=== PATIENT | male | born 1965 | race Caucasian/White ===

== ENCOUNTER 2017-12-15 16:22 | Emergency (ER) | payer MEDICAID ==
[~2017-12-15] VITALS: Ht 167.6 cm; Wt 89.8 kg
--- NOTE | 2017-12-15 21:48 | EKG ---
[facility] [address] [facility] [place] [address] Signed Normal sinus rhythm Right bundle branch block Left anterior fascicular block Bifascicular block Septal infarct , age undetermined Abnormal ECG No previous ECGs available Confirmed by LYNDON GALAN MD ([id number]) on 12/15/2017 9:48:04 PM Electronically Signed By: LYNDON GALAN MD 12/15/17 2148 PATIENT NAME: LUJANCT Electrocardiogram DATE OF : 69 PHYSICIAN: LYNDON GALAN MD REPORT #: [id number] REPORT IS CONFIDENTIAL AND NOT TO BE RELEASED WITHOUT AUTHORIZATION
== END 2017-12-15 18:36 | disposition home or self-care (01) ==
LOC: ED 16:22
DX: R07.9 Chest pain, unspecified (principal); F10.239 Alcohol dependence with withdrawal, unspecified; Z88.0 Allergy status to penicillin
CPT/HCPCS: 80053; 83690; 84484; 85025; 93005; 93010; 99284; J7040

== ENCOUNTER 2017-12-21 15:15 | Emergency (ER) | payer MEDICAID ==
[~2017-12-21] VITALS: Ht 167.6 cm; Wt 89.8 kg
--- OUTSIDE RECORDS SUMMARY | ~2017-12-21 | XMS | Encounter Summary ---
Demographics + + + | Address | [address] | | | [place] [address] | + + + | Home Phone | | + + + | Preferred Language | Unknown | + + + | Marital Status | Single | + + + | Rastafarian Affiliation | NRP | + + + | Race | White | + + + | Ethnic Group | Not or | + + + Author + + + | Author | [facility] | + + + | Organization | [facility] | + + + | Address | Unknown | + + + | Phone | Unavailable | + + + Support + + + + + | Name | Relationship | Address | Phone | + + + + + | TRACIE SHAFFER | ECON | [place] | | | | | [address] | | + + + + + Care Team Providers + +------+ + | Care Director Of Nursing Name | Role | Phone | + +------+ + | Alee Doe PA-C | PCP | | + +------+ + Reason for Visit + + + | Reason | Comments | + + + | 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 | | Call | | + + + Encounter Details +--------+ + + + + | Date | Type | Department | Care Team | Description | +--------+ + + + + | 12/12/ | Patient | [facility] | Alee Doe, | enforcement manager | | 2018 | Outreach | Medicine [address] | PA-C [address] | Call (Rehab) | | | | [address] [place], | [place], [place] | | | | | [place] [address] | [address] | | | | | [phone] | [phone] | | | | | | | | +--------+ + + + + Social History + + + [...] | | + +---+---+---+ + + | Comments: 6 cigarettes daily | + [...] on file | | + + + as of this encounter Plan of Treatment Not on fileas of this encounter Visit Diagnoses Not on filein this encounter
--- OUTSIDE RECORDS SUMMARY | ~2017-12-21 | XMS | Encounter Summary ---
Demographics + + + | Address | [address] | | | [place] [address] | + + + | Home Phone | | + + + | Preferred Language | Unknown | + + + | Marital Status | Single | + + + | Religion Affiliation | NRP | + + + | Race | White | + + + | Ethnic Group | Not or | + + + Author + + + | Author | [facility] | + + + | Organization | [facility] | + + + | Address | Unknown | + + + | Phone | Unavailable | + + + Support + + + + + | Name | Relationship | Address | Phone | + + + + + | TRACIE SHAFFER | ECON | [place] | | | | | [address] | | + + + + + Care Team Providers + +------+ + | Care Hydraulic Operator Name | Role | Phone | + +------+ + | Alee Doe PA-C | PCP | | + +------+ + Encounter Details +--------+ + + + + | Date | Type | Department | Care Team | Description | +--------+ + + + + | 12/01/ | Document-Sc | [facility] | Alee Doe, | | | 2018 | anned | Medicine [address] | ELIUD [address] | | | | | [address] [place], | [place] | | | | | [place] [address] | [address] | | | | | [phone] | | | | | | | [...]
--- OUTSIDE RECORDS SUMMARY | ~2017-12-21 | XMS | Encounter Summary ---
Demographics + + + | Address | [address] | | | [place] [address] | + + + | Home Phone | | + + + | Preferred Language | Unknown | + + + | Marital Status | Single | + + + | Presybeterian Affiliation | NRP | + + + | Race | White | + + + | Ethnic Group | Not or | + + + Author + + + | Author | [facility] | + + + | Organization | [facility] | + + + | Address | Unknown | + + + | Phone | Unavailable | + + + Support + + + + + | Name | Relationship | Address | Phone | + + + + + | TRACIE SHAFFER | ECON | [place] | | | | | [address] | | + + + + + Care Team Providers + +------+ + | Care Laboratory Inspector Name | Role | Phone | + +------+ + | Alee Doe PA-C | PCP | | + +------+ + Reason for Visit + + + | Reason | Comments | + + + | 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
--- OUTSIDE RECORDS SUMMARY | ~2017-12-21 | XMS | Encounter Summary ---
Demographics + + + | Address | [address] | | | [place] [address] | + + + | Home Phone | | + + + | Preferred Language | Unknown | + + + | Marital Status | Single | + + + | Denominational Affiliation | NRP | + + + | Race | White | + + + | Ethnic Group | Not or | + + + Author + + + | Author | [facility] | + + + | Organization | [facility] | + + + | Address | Unknown | + + + | Phone | Unavailable | + + + Support + + + + + | Name | Relationship | Address | Phone | + + + + + | TRACIE SHAFFER | ECON | [place] | | | | | [address] | | + + + + + Care Team Providers + +------+ + | Care Charger Name | Role | Phone | + +------+ + | Alee Doe PA-C | PCP | | + +------+ + Reason for Visit + + + | Reason | Comments | + + + | Refill Request | Metformin, Albuterol Inhaler, Atorvastatin, Glimepiride, | | | Metoprolol, Ranitidine, Pantoprazole, Lisinopril, Trazodone | + + + Encounter Details +--------+ + + + + | Date | Type | Department | Care Team | Description | +--------+ + + + + | 12/15/ | Telephone | [facility] | Alee Doe, | Refill Request | | 2017 | | Medicine [address] | PA-C [address] | (Metformin, | | | | [address] [place], | [place], [place] | Albuterol Inhaler, | | | | [place] [address] | [address] | Atorvastatin, | | | | [phone] | [phone] | Glimepiride, | | | | | | Metoprolol, | | | | | | Ranitidine, | | | | | | Pantoprazole, | | | | | | Lisinopril, | | | | | | Trazodone) | +--------+ + + + + Social [...] on fileas of this encounter Visit Diagnoses + + | Diagnosis | + + | Uncontrolled type 2 diabetes mellitus without complication, without long-term current | | use of insulin (HCC) | + +
--- OUTSIDE RECORDS SUMMARY | ~2017-12-21 | XMS | Encounter Summary ---
Demographics + + + | Address | [address] | | | [place] [address] | + + + | Home Phone | | + + + | Preferred Language | Unknown | + + + | Marital Status | Single | + + + | Shinto Affiliation | NRP | + + + [...] [place] | | | | | [address] | | + + + + + Care Team Providers + +------+ + | Care Stonecutter Apprentice Hand Name | Role | Phone | + [...] | | | | | [address] [place], | [place] | | | | | [place] [address] | [address] | | | | | [phone] | [phone] | | | | | | | [...]
--- OUTSIDE RECORDS SUMMARY | ~2017-12-21 | XMS | Encounter Summary ---
Demographics + + + | Address | [address] | | | [place] [address] | + + + | Home Phone | | + + + | Preferred Language | Unknown | + + + | Marital Status | Single | + + + | Moravian Affiliation | NRP | + + + | Race | White | + + + | Ethnic Group | Not or | + + + Author + + + | Author | [facility] | + + + | Organization | [facility] | + + + | Address | Unknown | + + + | Phone | Unavailable | + + + Support + + + + + | Name | Relationship | Address | Phone | + + + + + | TRACIE SHAFFER | ECON | [place] | | | | | [address] | | + + + + + Care Team Providers + +------+ + | Care Brake Operator Sheet Metal Name | Role | Phone | + +------+ + | Alee Doe PA-C | PCP | | + +------+ + Reason for Visit + + + | Reason | Comments | + + + | Appointment | | + + + Encounter Details +--------+ + + + + | Date | Type | Department | Care Team | Description | +--------+ + + + + | 12/21/ | Telephone | [facility] | Alee Doe, | Appointment | | 2017 | | Medicine [address] | ELIUD [address] | | | | | [address] [place], | [place], [place] | | | | | [place] [address] | [address] | | | | | [phone] | [phone] | | | | | | | [...]
--- OUTSIDE RECORDS SUMMARY | ~2017-12-21 | XMS | Encounter Summary ---
Demographics + + + | Address | [address] | | | [place] [address] | + + + | Home Phone | | + + + | Preferred Language | Unknown | + + + | Marital Status | Single | + + + | Anabaptist Affiliation | NRP | + + + | Race | White | + + + | Ethnic Group | Not or | + + + Author + + + | Author | [facility] | + + + | Organization | [facility] | + + + | Address | Unknown | + + + | Phone | Unavailable | + + + Support + + + + + | Name | Relationship | Address | Phone | + + + + + | TRACIE SHAFFER | ECON | [place] | | | | | [address] | | + + + + + Care Team Providers + +------+ + | Care Call Center Support Representative Name | Role | Phone | + +------+ + | Alee Doe PA-C | PCP | | + +------+ + Reason for Referral Consultation (Routine) + +--------+ + + + + | Status | Reason | Specialty | Diagnoses / | Referred By | Referred To | | | | | Procedures | Contact | Contact | + +--------+ + + + + | Authorized | | Ophthalmology | Diagnoses | [place], | [facility] | | | | | Essential | Alee Garcia | [facility] | | | | | hypertension | ELIUD [address] | [address] | | | | | [address]rolled | [address] | [place] | | | | | type 2 | [place], | [address] | | | | | diabetes | [place] | [place], | | | | | mellitus | [address] | [place] [address] | | | | | without | Phone: | Phone: | | | | | complication | [phone] | [phone] | | | | | , without | Fax: | Fax: | | | | | long-term | [phone] | [phone] | | | | | current use | | | | | | | of insulin | | | | | | | (HCC) | | | | | | | Procedures | | | | | | | CONSULT TO | | | | | | | OPHTHALMOLOG | | | | | | | Y | | | + +--------+ + + + + Reason for Visit + + + | Reason | Comments | + + + | Referral Needed | [facility] | + + + Encounter Details +--------+ + + + + | Date | Type | Department | Care Team | Description | +--------+ + + + + | 11/23/ | Telephone | [facility] | Alee Doe, | Referral Needed | | 2018 | | Medicine [address] | PA-C [address] | ([facility]) | | | | [address] [place], | [place], [place] | | | | | [place] [address] | [address] | | | | | [phone] | | | | | | | [...] + | Diagnosis | + + | Controlled type 2 diabetes mellitus without complication, without long-term current use | | of insulin (HCC) - Primary | + + | Essential hypertension | + +
--- OUTSIDE RECORDS SUMMARY | ~2017-12-21 | XMS | Encounter Summary ---
Demographics + + + | Address | [address] | | | [place] [address] | + + + | Home Phone | | + + + | Preferred Language | Unknown | + + + | Marital Status | Single | + + + | Adventism Affiliation | NRP | + + + | Race | White | + + + | Ethnic Group | Not or | + + + Author + + + | Author | [facility] | + + + | Organization | [facility] | + + + | Address | Unknown | + + + | Phone | Unavailable | + + + Support + + + + + | Name | Relationship | Address | Phone | + + + + + | TRACIE SHAFFER | ECON | [place] | | | | | [address] | | + + + + + Care Team Providers + +------+ + | Care Miller Kiln Dried Salt Name | Role | Phone | + +------+ + | Alee Doe PA-C | PCP | | + +------+ + Reason for Visit +--------+ + | Reason | Comments | +--------+ + | Other | | +--------+ + Encounter Details +--------+ + + + + | Date | Type | Department | Care Team | Description | +--------+ + + + + | 09/29/ | Telephone | [facility] | Alee Doe, | Other | | 2017 | | Medicine [address] | ELIUD [address] | | | | | [address] [place], | [place] | | | | | [place] [address] | [address] | | | | | [phone] | | | | | | | [...]
--- OUTSIDE RECORDS SUMMARY | ~2017-12-21 | XMS | Encounter Summary ---
Demographics + + + | Address | [address] | | | [place] [address] | + + + | Home Phone | | + + + | Preferred Language | Unknown | + + + | Marital Status | Single | + + + | Church Affiliation | NRP | + + + | Race | White | + + + | Ethnic Group | Not or | + + + Author + + + | Author | [facility] | + + + | Organization | [facility] | + + + | Address | Unknown | + + + | Phone | Unavailable | + + + Support + + + + + | Name | Relationship | Address | Phone | + + + + + | TRACIE SHAFFER | ECON | [place] | | | | | [address] | | + + + + + Care Team Providers + +------+ + | Care Gum Puller Name | Role | Phone | + +------+ + | Alee Doe PA-C | PCP | | + +------+ + Reason for Visit + + + | Reason | Comments | + + + | Cough | X6 wks, c/o congestion, sob- worse at night. pt denies fevers. pt | | | last alcoholic drink was monday. | + + + | Ankle pain | left ankle. | + + + Encounter Details +--------+---------+ + + + | Date | Type | Department | Care Team | Description | +--------+---------+ + + + | 10/13/ | Office | [facility] | Alee Doe, | Acute suppurative | | 2017 | Visit | Medicine [address] | PA-C [address] | otitis media of left | | | | [address] [place], | [place], [place] | ear without | | | | [place] [address] | [address] | spontaneous rupture | | | | [phone] | [phone] | of tympanic | | | | [...] | | | | | hypertension | +--------+---------+ + + + Social History + + [...] + + + as of this encounter Last Filed Vital Signs + + + + | Vital Sign | Reading | Time Taken | + + + + | Blood Pressure | 112/64 | 10/13/2017 10:34 AM PST | + + + + | Pulse | 111 | 10/13/2017 10:34 AM PST | + + + + | Temperature | 36.8 C (98.2 F) | 10/13/2017 10:34 AM PST | + + + + | Respiratory Rate | - | - | + + + + | Oxygen Saturation | 96% | 10/13/2017 10:34 AM PST | + + + + | Inhaled Oxygen | - | - | | Concentration | | | + + + + | Weight | 83.5 kg (184 lb) | 10/13/2017 10:34 AM PST | + + + + | Height | - | - | + + + + | Body Mass Index | 28.82 | 10/13/2017 10:34 AM PST | + + + + in this encounter Instructions Patient Instructions - Lisa Chamberlain MA - 10/13/2017 10:45 AM PST1. Acute suppurative wesley tis media of left ear without spontaneous rupture of tympanic membrane, recurrence not speci fied/Acute non-recurrent maxillary sinusitis I have prescribed azithromycin to treat your ear infection and a sinus infection. Please en sure you get plenty of rest, stay hydrated, use nasal saline/humidifier/steamy showers for c ongestion, tylenol/ibuprofen for headache/fever. Please follow up if your symptoms fail to i mprove over the next week, your symptoms worsen or new concerns arise. 2. Generalized abdominal pain I suspect your pancreas is inflamed. I recommend that you stop drinking alcohol and increas e your fluid intake. Be mindful of your food intake. We did lab work today and will call you with those results. I have prescribed pantoprazole to help with your heartburn. 3. Acute left ankle pain I have ordered an xray of your ankle. You can go get this at the hospital at your convenien ce and we will call you with those results. Please wear supportive shoes, avoid uneven groun d and take antiinflammatories consistently. 4. Controlled type 2 diabetes mellitus without complication, without long-term current use of insulin (HCC) Labs drawn today before we resume metformin or glimepiride. Please continue to check your b lood sugars occasionally and if you feel flushed, dizzy, weak, or nauseous. - HEMOGLOBIN A1C, BLOOD; Future - ALBUMIN URINE, RANDOM; Future 5. Chronic obstructive pulmonary disease, unspecified COPD type (HCC) Restart combivent daily and albuterol as needed. Flu shot given today. Please work on minimizing smoking - goal is to quit if at all possible. 6. Essential hypertension No medications restarted today as your blood pressure is good. However, we will need to res tart lisinopril at some point to protect kidnyes and metoprolol for heart protection/lower y our heart rate. Please follow up with me in 2 weeks to recheck blood pressure and go over la bs/develop a plan. 7. Alcohol-induced insomnia (HCC) Continue trazodone 200 mg for now. We'll discuss this further at your next appointment in 2 weeks if not improved by then (being sober for 3 weeks by then).in this encounter Progress Notes Alee Doe PA-C - 10/13/2017 10:45 AM PSTFormatting of this note may be different fr om the original. SUBJECTIVE CC: Chief Complaint Patient presents with Cough X6 wks, c/o congestion, sob- worse at night. pt denies fevers. pt last alcoholic drink wa s monday. Ankle pain left ankle. HPI: Yung Headley is a 52 y.o. male who complains of sinus and nasal congestion, s ore throat, headaches, sinus pain, post nasal drip, chest congestion, ear pain, wheezing and productive cough for 6 weeks. It is making it hard for him to sleep at night. He denies a h istory of fevers, nausea, vomiting and rash and has a history of COPD. Patient does smoke ci garettes but decided to quit on Monday. He has abdominal pain and has not been eating very w ell due to this. It is achy and located more on the sides and in his stomach. He does feel b loated. He is drinking lots of fluids. He was drinking a 6 pack per day on his days off. He has stopped since Monday because of the abdominal pain (reminds him of the numerous times he has had pancreatitis secondary to alcohol use). His abdomen feels tight but he denies any s welling in his legs. His stress level has been higher lately. 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 His mother passed stephen y which was tough at first but he is coping better now. He was evicted from the house very s hortly after her passing. He is now in a nice travel trailer. He lost his insurance about 6-7 months ago and has not been taking his medications. He did check his blood sugar periodically and the highest one was 130. He restarted trazodone for h is sleep 5 days ago but doesn't find it very helpful. He is able to fall asleep but he wakes up about 1.5 hours later for no clear reason. He does admit that in the past when he was so nathan for longer periods of time that his sleep did well on the trazodone. He twisted his left ankle 5-6 weeks ago. It was not painful at the time but has been since. He did not notice any initial ecchymosis or edema after the injury. The pain is on the medi al malleolus. The pain is present when he is active or at rest but is worsened with activity . He has a history of ankle surgery on this ankle (lateral side) and there is a plate and sc rews present. He has not taken anything to help with the pain. Pain is stable without any im provement or worsening. Review of Systems Constitutional: Positive for malaise/fatigue. Negative for chills, diaphoresis, fever and w eight loss. HENT: Positive for congestion, ear pain, sinus pain and sore throat. Negative for ear disch arge and nosebleeds. Eyes: Negative for pain and discharge. Respiratory: Positive for cough, sputum production, shortness of breath and wheezing. Cardiovascular: Negative for chest pain, palpitations and leg swelling. Gastrointestinal: Positive for abdominal pain, heartburn and nausea. Negative for blood in stool, constipation, diarrhea, melena and vomiting. Genitourinary: Positive for hematuria. Negative for dysuria, flank pain, frequency and urge ncy. Musculoskeletal: Positive for back pain. Neurological: Positive for headaches. Negative for dizziness, tremors, speech change, focal weakness, seizures and weakness. Psychiatric/Behavioral: Negative for depression. The patient has insomnia. The patient is n ot nervous/anxious. OBJECTIVE PHYSICAL EXAM: BP 112/64 | Pulse 111 | Temp (Src) 36.8 C (98.2 F) (Oral) | Wt 83.5 kg (184 lb) | SpO2 96% | BMI 28.82 kg/(m^2) General appearance: overweight, without distress. HEENT: Eyes: Sclera nonicteric and without erythema. Conjunctiva pink, moist without discharge. Ears: Canals clear, right TM pearly adam with light reflex and bony structures evident. No perforations, air-fluid line or erythema. Left TM erythematous, bulging with yellow purulen t fluid evident behind TM. Nose: Nares patent bilaterally. Clear discharge. Turbinates pink, moist, with erythema and edema. No polyps. Mouth: Lips pink without lesions. Uvula midline. Tonsils 1+. Oropharynx without edema, eryt damir or exudates. Thick yellow postnasal drip evident. Buccal mucosa and gingiva pink, moist without hemorrhage or lesions. Neck: Trachea midline. No tonsilar, submandiblar, submental, anterior and posterior cervica l chains, or supraclavicular lymphadenopathy or tenderness. Pulm: Regular, nonlabored breathing without accessory muscle use. Cough elicited by deep in spiration. CTA A/P/L bilaterally with prolonged expiratory phase, occasional end expiratory wheezes. No crackles, rubs or rhonchi. Nails smooth without clubbing, spooning or cyanosis. Capillary refill < 2 seconds. Cardiac: RRR without murmur, rubs or gallops.Radial pulses 2+ and equal bilaterally. Abdomen: Contour uniform. Normoactive bowel sounds x 4 quadrants, no rubs or bruits. Soft, diffusely tender in upper abdomen, LUQ>RUQ. Nondistended without masses or rigidity on palpa tion. Hepatomegaly. No splenomegaly. Musculoskeletal: Ankles: No lower extremity, ankle or foot edema. Left lateral ankle mildly deformed/enlarged s/p surgery. Full ankle ROM without pain. Exquisitely tender to palpation of left medial malleolus, mild tenderness across AFL, otherwise nontender. Ankle stable wit hout ligamentous laxity. Skin: Skin warm, smooth and firm with resilient turgor. No rash. Psych: Dressed appropriately, good eye contact, linear thought progression. ASSESSMENT/PLAN 1. Acute suppurative otitis media of left ear without spontaneous rupture of tympanic membr ane, recurrence not specified/Acute non-recurrent maxillary sinusitis I have prescribed azithromycin to treat your ear infection and a sinus infection. Please en sure you get plenty of rest, stay hydrated, use nasal saline/humidifier/steamy showers for c ongestion, tylenol/ibuprofen for headache/fever. Please follow up if your symptoms fail to i mprove over the next week, your symptoms worsen or new concerns arise. 2. Generalized abdominal pain I suspect your pancreas is inflamed. I recommend that you stop drinking alcohol and increas e your fluid intake. Be mindful of your food intake. We did lab work today and will call you with those results. I have prescribed pantoprazole to help with your heartburn. 3. Acute left ankle pain I have ordered an xray of your ankle. You can go get this at the hospital at your convenien and we will call you with those results. Please wear supportive shoes, avoid uneven groun d and take antiinflammatories consistently. 4. Controlled type 2 diabetes mellitus without complication, without long-term current use of insulin (HCC) Labs drawn today before we resume metformin or glimepiride. Please continue to check your b lood sugars occasionally and if you feel flushed, dizzy, weak, or nauseous. - HEMOGLOBIN A1C, BLOOD; Future - ALBUMIN URINE, RANDOM; Future 5. Chronic obstructive pulmonary disease, unspecified COPD type (HCC) Restart combivent daily and albuterol as needed. Flu shot given today. Please work on minimizing smoking - goal is to quit if at all possible. 6. Essential hypertension No medications restarted today as your blood pressure is good. However, we will need to res tart lisinopril at some point to protect kidnyes and metoprolol for heart protection/lower y our heart rate. Please follow up with me in 2 weeks to recheck blood pressure and go over la bs/develop a plan. 7. Alcohol-induced insomnia (HCC) Continue trazodone 200 mg for now. We'll discuss this further at your next appointment in 2 weeks if not improved by then (being sober for 3 weeks by then). I, Lisa Chamberlain, [facility], am functioning as a scribe for Alee Doe PA-C. I have reviewed and verified the above scribed note of my visit with this patient. Alee Doe PA-C [facility] [address] [place] [phone] in this encounter Plan of Treatment + +--------+ + + | Name | Priori | Associated Diagnoses | Order Schedule | | | ty | | | + +--------+ + + | X-RAY ANKLE 3 VIEWS LEFT | Routin | Acute left ankle | Expected: | | | e | pain | 10/13/2017, Expires: | | | | | 11/13/2018 | + +--------+ + + as of this encounter Results CULTURE, URINE (10/13/2017 11:48 AM) + + + + | Component | Value | Ref Range | + + + + | CULTURE RESULT URINE | No Growth | | + + + + + + + | Specimen | Performing Laboratory | + + + | Urine | [address] [facility] | | | [place] [id number] | + + + URINE, MICROSCOPIC EXAM (10/13/2017 11:48 [...] | + + + | Urine | [address] [facility] | | | [place] [id number] | + + + ALBUMIN URINE, RANDOM (10/13/2017 11:48 AM) + [...] | + + + | Urine | [address] [facility] | | | [place] [id number] | + + + + + | [...] within a diagnostic category. | + + LIPASE, PLASMA (10/13/2017 11:48 AM) + +-------+ + | Component | Value | Ref Range | + +-------+ + | LIPASE (LAB) | 26 | 5 - 57 U/L | + +-------+ + + + + | Specimen | Performing Laboratory | + + + | Blood | [address] [facility] | | | [place] [address] | + + + COMPLETE METABOLIC SET [...] | >60 | >60 mL/min | | UGANDAN | | | + +---------+ + | EGFR NON | >60 | >60 mL/min | | -UGANDAN | | | + +---------+ + | [...] | + + + | Blood | [address] [facility] | | | [place] [address] | + + + + + | [...] Rapidly changing kidney function | + + HEMOGLOBIN A1C, BLOOD (10/13/2017 11:48 [...] | + + + | Blood | [address] [facility] | | | [place] [address] | + + + + + | Narrative | + + | Glycohemoglobin Recommended Diabetic Ranges per DCCT & ADA: Normal | | Range: <6% Good | | Control: <7% Additional action | | suggested: >8% Non-Diabetic | | Ranges: 4-6% Permit Coordinator's Glycohemoglobin Diabetic | | Ranges: Normal Range: 4.0-6.0% | | Good Control: 6.0-8.0% | | Poor Control: >8.0% | + + in this encounter Visit Diagnoses + + | Diagnosis | + + | Acute suppurative otitis media of left ear without spontaneous rupture of tympanic | | membrane, recurrence not specified - Primary | + + | Acute non-recurrent maxillary sinusitis | + + | Pain of upper abdomen | + + | Abdominal pain, other specified site | + + | Acute left ankle pain | + + | Flu vaccine need | + + | Need for prophylactic vaccination and inoculation against influenza | + + | Controlled type 2 diabetes mellitus without complication, without long-term current use | | of insulin (HCC) | + + | Chronic obstructive pulmonary disease, unspecified COPD type (HCC) | + + | Essential hypertension | + + | Alcohol-induced insomnia (HCC) | + + | Alcohol induced sleep disorders | + + | Gross hematuria | + +
--- OUTSIDE RECORDS SUMMARY | ~2017-12-21 | XMS | Encounter Summary ---
Demographics + + + | Address | [address] | | | [place] [address] | + + + | Home Phone | | + + + | Preferred Language | Unknown | + + + | Marital Status | Single | + + + | Rastafari Affiliation | NRP | + + + | Race | White | + + + | Ethnic Group | Not or | + + + Author + + + | Author | [facility] | + + + | Organization | [facility] | + + + | Address | Unknown | + + + | Phone | Unavailable | + + + Support + + + + + | Name | Relationship | Address | Phone | + + + + + | TRACIE SHAFFER | ECON | [place] | | | | | [address] | | + + + + + Care Team Providers + +------+ + | Care Manager Wireless Name | Role | Phone | + +------+ + | Alee Doe PA-C | PCP | | + +------+ + Reason for Visit + + + | Reason | Comments | + + + | Needs Paperwork | | + + + Encounter Details +--------+ + + + + | Date | Type | Department | Care Team | Description | +--------+ + + + + | 12/15/ | Telephone | [facility] | Alee Doe, | Needs Paperwork | | 2018 | | Medicine [address] | [place] [address] | | | | | [address] [place], | [place], [place] | | | | | [place] [address] | [phone] | | | | | [phone] | [phone] | | | | | | | [...]
--- OUTSIDE RECORDS SUMMARY | ~2017-12-21 | XMS | Encounter Summary ---
Demographics + + + | Address | [address] | | | [place] [address] | + + + | Home Phone | | + + + | Preferred Language | Unknown | + + + | Marital Status | Single | + + + | Anglican Affiliation | NRP | + + + | Race | White | + + + | Ethnic Group | Not or | + + + Author + + + | Author | [facility] | + + + | Organization | [facility] | + + + | Address | Unknown | + + + | Phone | Unavailable | + + + Support + + + + + | Name | Relationship | Address | Phone | + + + + + | TRACIE SHAFFER | ECON | [place] | | | | | [address] | | + + + + + Care Team Providers + +------+ + | Care Human Relations Teacher Name | Role | Phone | + +------+ + | Alee Doe PA-C | PCP | | + +------+ + Encounter Details +--------+------+ + + + | Date | Type | Department | Care Team | Description | +--------+------+ + + + | 10/13/ | Lab | Laboratory at [facility] | | Controlled type 2 | | 2017 | | Family Medicine | | diabetes mellitus | | | | [address] | | without | | | | [place] | | complication, | | | | [address] | | without long-term | | | | [phone] | | current use of | | | | | | insulin (HCC); Pain | | | | | | of upper abdomen; | | | | | | Gross hematuria | +--------+------+ + + + Social History + + [...] Treatment Not on fileas of this encounter Results URINE, MICROSCOPIC EXAM (10/13/2017 11:48 AM) + [...] | + + + | Urine | [address] [facility] | | | [place] [address] | + + + ALBUMIN URINE, RANDOM [...] | + + + | Urine | [address] [facility] | | | [place] [address] | + + + + + | [...] | + + + | Blood | [address] [facility] | | | [place] [address] | + + + COMPLETE METABOLIC SET [...] | >60 | >60 mL/min | | OMANI | | | + +---------+ + | EGFR NON | >60 | >60 mL/min | | -OMANI | | | + +---------+ + | [...] | + + + | Blood | [address] [facility] | | | [place] [address] | + + + + + | [...] | + + + | Blood | [address] [facility] | | | [place] [address] | + + + + + | Narrative | + + | Glycohemoglobin Recommended Diabetic Ranges per DCCT & ADA: Normal | | Range: <6% Good | | Control: <7% Additional action | | suggested: >8% Non-Diabetic | | Ranges: 4-6% National Facilities Manager's Glycohemoglobin Diabetic | | Ranges: Normal Range: 4.0-6.0% | | Good Control: 6.0-8.0% | | Poor Control: >8.0% | + + in this encounter Visit Diagnoses + + | Diagnosis | + + | Controlled type 2 diabetes mellitus without complication, without long-term current use | | of insulin (HCC) | + + | Pain of upper abdomen | + + | Abdominal pain, other specified site | + + | Gross hematuria | + +
--- OUTSIDE RECORDS SUMMARY | ~2017-12-21 | XMS | Encounter Summary ---
Demographics + + + | Address | [address] | | | [place] [address] | + + + | Home Phone | | + + + | Preferred Language | Unknown | + + + | Marital Status | Single | + + + | Catholic Affiliation | NRP | + + + | Race | White | + + + | Ethnic Group | Not or | + + + Author + + + | Author | [facility] | + + + | Organization | [facility] | + + + | Address | Unknown | + + + | Phone | Unavailable | + + + Support + + + + + | Name | Relationship | Address | Phone | + + + + + | TRACIE SHAFFER | ECON | [place] | | | | | [address] | | + + + + + Care Team Providers + +------+ + | Care Data Designer Name | Role | Phone | + [...] (Metformin, | | | | [address] [place], | [place], [place] | Albuterol Inhaler, | | | | [place] [address] | [phone] | Atorvastatin, | | | | [phone] | [phone] | Glimepiride, | | | | | [...]
--- OUTSIDE RECORDS SUMMARY | ~2017-12-21 | XMS | Encounter Summary ---
Demographics + + + | Address | [address] | | | [place] [address] | + + + | Home Phone | | + + + | Preferred Language | Unknown | + + + | Marital Status | Single | + + + | Synagogue Affiliation | NRP | + + + | Race | White | + + + | Ethnic Group | Not or | + + + Author + + + | Author | [facility] | + + + | Organization | [facility] | + + + | Address | Unknown | + + + | Phone | Unavailable | + + + Support + + + + + | Name | Relationship | Address | Phone | + + + + + | TRACIE SHAFFER | ECON | [place] | | | | | [address] | | + + + + + Care Team Providers + +------+ + | Care Foam Rubber Molder Name | Role | Phone | + [...] + + + | Authorized | | Psychiatry | Diagnoses | Brook | Lb | | | | | Alcohol | Alee Garcia | Joradn | | | | | abuse | [address] | [facility] | | | | | Depression, | St | Living [address] | | | | | unspecified | [place], | St [address] | | | | | depression | [place] | [address] | | | | | type | [address] | [place] | | | | | Procedures | Phone: | [phone] Phone: | | | | | CONSULT TO | [phone] | [phone] | | | | | BEHAVIORAL | Fax: | Fax: | | | | | HEALTH/PSYCH | [phone] | [phone] | | | | | IATRY - | | | | | | | ADULT | | | + +--------+ + + + + Reason for Visit +--------+ + | Reason | Comments | +--------+ + | Cyst | cyst in groin area x 2/3 wks | +--------+ + Encounter Details +--------+---------+ + + + | Date | Type | Department | Care Team | Description | +--------+---------+ + + + | 11/22/ | Office | [facility] | Doe, Alee A, | Alcohol abuse | | 2018 | Visit | Medicine [address] | PA-C [address] | (Primary Dx); | | | | [address] [place], | [place], [place] | Depression, | | | | [place] [address] | [address] | unspecified | | | | [phone] | [phone] | depression type; | | | | | | Acute folliculitis | +--------+---------+ + + + Social History [...] + + + + | Temperature | - | - | + + + + | Respiratory [...] PM PST | + + + + in this encounter Instructions Patient Instructions - Lisa Chamberlain MA - 11/22/2017 2:45 PM PST1. Alcohol abuse/depress ion I recommend doing outpatient rehab and counseling through [facility]. Please call [facility] at to find out their intake hours. They are more available for more freque nt counseling sessions. You need to be upfront with them about the support you need and give the counselor time to get to know you and learn to support you the way you find helpful. Co unseling and dealing with your issues will take time. 2. Acute folliculitis Please start antibiotics (bactrim) and take full course of antibiotics. Keep area clean and dry (can use baby powder). Keep a close eye on the area - if it doesn't improve, let me kno w as given your history of necrotizing fasciitis, we may need to do further imaging. Please follow up with me in the next few weeks/month on your diabetes and breathing. I did refill your inhaler. in this encounter Progress Notes Alee Doe PA-C - 11/22/2017 2:45 PM PSTFormatting of this note may be different fr om the original. SUBJECTIVE CC: Chief Complaint Patient presents with Cyst cyst in groin area x 2/3 wks HPI: Yung Headley is a 52 y.o. male here with a cyst in his groin for 3-4 weeks. Farhan millan has been draining it on his own (blood primarily) but it is not resolving. He doesn't thin k it has grown in size. He denies any fevers. He is worried it is the same thing he had in t he past (necrotizing fasciitis, 2015). He denies any pain in his groin or inguinal area, fev er/sweats/chills. He has been drinking too much. His last paycheck took an extra week to get to him due to fr aud on his account. He drinks to forget about everything. He drinks 1 6-pack per day. Today he drank prior to his appointment but he did not drive to his appointment today. He is still able to pay his bills right now but is getting close to not being able to pay things includ ing his rent. He feels like everything is going wrong and he cannot catch a break. He would like to go to rehab but he cannot afford to take that much time off of work. He feels like farhan millan needs to see a psychiatrist/counselor about all of this but he does not think that anyone can handle this. He had a bad experience with AA and does not want to go back. Review of Systems Constitutional: Negative for malaise/fatigue and weight loss. Respiratory: Negative for shortness of breath and wheezing. Cardiovascular: Negative for chest pain and palpitations. Gastrointestinal: Negative for abdominal pain, constipation, diarrhea, heartburn, nausea an d vomiting. Musculoskeletal: Negative for myalgias. Skin: Negative for itching and rash. Neurological: Negative for dizziness, tingling, weakness and headaches. Psychiatric/Behavioral: Positive for depression and substance abuse. Negative for hallucina tions, memory loss and suicidal ideas. The patient is not nervous/anxious and does not have insomnia. OBJECTIVE PHYSICAL EXAM: BP 146/82 | Pulse 101 | Wt 89.8 kg (198 lb) | SpO2 91% | BMI 31.01 kg/(m^2) General appearance: Obese, in moderate emotional distress, smells of alcohol. Skin: Warm, smooth and firm with resilient turgor. Right inguinal fold: excoriated pustule /papule with scant active bleeding. No surrounding erythema, induration, streaking. 2 mm pal pable mass at the site without tenderness. Lymph: no inguinal or femoral lymphadenopathy. Psych: Tearful, agitated, pressured speech. Dressed appropriately, good eye contact, linear thought progression. ASSESSMENT/PLAN 1. Alcohol abuse/depression I recommend doing outpatient rehab and counseling through [facility]. Please call [facility] at to find out their intake hours. They are more available for more freque nt counseling sessions. You need to be upfront with them about the support you need and give the counselor time to get to know you and learn to support you the way you find helpful. Co unseling and dealing with your issues will take time. 2. Acute folliculitis Please start antibiotics (bactrim) and take full course of antibiotics. Keep area clean and dry (can use baby powder). Keep a close eye on the area - if it doesn't improve, let me kno w as given your history of necrotizing fasciitis, we may need to do further imaging. Please follow up with me in the next few weeks/month on your diabetes and breathing. I did refill your inhaler. I, Lisa Chamberlain CMA, am functioning as a scribe for Alee Doe PA-C. I have reviewed and verified the above scribed note of my visit with this patient. Alee Doe PA-C [facility] [address] [place] [address] in this encounter Plan of Treatment Not on fileas of this encounter Visit Diagnoses + + | Diagnosis | + + | Alcohol abuse - Primary | + + | Alcohol abuse, unspecified | + + | Depression, unspecified depression type | + + | Acute folliculitis | + +
--- OUTSIDE RECORDS SUMMARY | ~2017-12-21 | XMS | Encounter Summary ---
Demographics + + + | Address | [address] | | | [place] [address] | + + + | Home Phone | | + + + | Preferred Language | Unknown | + + + | Marital Status | Single | + + + | Hinduism Affiliation | NRP | + + + | Race | White | + + + | Ethnic Group | Not or | + + + Author + + + | Author | [facility] | + + + | Organization | [facility] | + + + | Address | Unknown | + + + | Phone | Unavailable | + + + Support + + + + + | Name | Relationship | Address | Phone | + + + + + | TRACIE SHAFFER | ECON | [place] | | | | | [address] | | + + + + + Care Team Providers + +------+ + | Care Boring And Filling Machine Operator Name | Role | Phone | + +------+ + | Alee Doe PA-C | PCP | | + +------+ + Reason for Visit + + + | Reason | Comments | + + + | Medication Question | CAN PILER re Rxs sent to [facility] . | + + + Encounter Details +--------+ + + + + | Date | Type | Department | Care Team | Description | +--------+ + + + + | 12/15/ | Telephone | [facility] | Brigitte Sloan, | Medication Question | | 2018 | | Medicine [address] | JUICE STANDARDIZER [address] | (CAN PILER re Rxs sent | | | | [address] [place], | [address] [employer] [place] | to [employer].) | | | | [place] [address] | [address] | | | | | [phone] | [phone] | | | | | | | [...]
--- OUTSIDE RECORDS SUMMARY | ~2017-12-21 | XMS | Encounter Summary ---
Demographics + + + | Address | [address] | | | [place] [address] | + + + | Home Phone | | + + + | Preferred Language | Unknown | + + + | Marital Status | Single | + + + | Taoism Affiliation | NRP | + + + | Race | White | + + + | Ethnic Group | Not or | + + + Author + + + | Author | [facility] | + + + | Organization | [facility] | + + + | Address | Unknown | + + + | Phone | Unavailable | + + + Support + + + + + | Name | Relationship | Address | Phone | + + + + + | TRACIE SHAFFER | ECON | [place] | | | | | [address] | | + + + + + Care Team Providers + +------+ + | Care Tailor Women'S Garment Alteration Name | Role | Phone | + [...] | Ophthalmology | Diagnoses | Brook, | [facility] | | | | | Essential | Alee Garcia | Cntr The | | | | | hypertension | [address] | [place] [address] | | | | | Controlled | St | [place] | | | | | type 2 | [place], | [address] | | | | | diabetes | [place] | [place], | | | | | mellitus | [address] | [place] [address] | | | | | without | Phone: | Phone: | | | | | complication | [phone] | [phone] | | | | | , without | Fax: | Fax: | | | | | long-term | [phone] | [phone] | | | | | current use [...] + + + | Referral Needed | [facility] | + + + Encounter Details +--------+ + + + + | Date | Type | Department | Care Team | Description | +--------+ + + + + | 11/23/ | Telephone | [facility] | Alee Doe, | Referral Needed | | 2018 | | Medicine [address] | PA-C [address] | ([facility]) | | | | [address] [place], | [place], [place] | | | | | [place] [address] | [address] | | | | | [phone] | [phone] | | | | | | | [...]
--- OUTSIDE RECORDS SUMMARY | ~2017-12-21 | XMS | Encounter Summary ---
Demographics + + + | Address | [address] | | | [place] [address] | + + + | Home Phone | | + + + | Preferred Language | Unknown | + + + | Marital Status | Single | + + + | Baptism Affiliation | NRP | + + + | Race | White | + + + | Ethnic Group | Not or | + + + Author + + + | Author | [facility] | + + + | Organization | [facility] | + + + | Address | Unknown | + + + | Phone | Unavailable | + + + Support + + + + + | Name | Relationship | Address | Phone | + + + + + | TRACIE SHAFFER | ECON | [place] | | | | | [address] | | + + + + + Care Team Providers + +------+ + | Care Injury/Safety Hazard Assessment Name | Role | Phone | + +------+ + | Alee Doe PA-C | PCP | | + +------+ + Reason for Visit + + + | Reason | Comments | + + + | 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
--- OUTSIDE RECORDS SUMMARY | ~2017-12-21 | XMS | Encounter Summary ---
Demographics + + + | Address | [address] | | | [place] [address] | + + + | Home Phone | | + + + | Preferred Language | Unknown | + + + | Marital Status | Single | + + + | Gnosticism Affiliation | NRP | + + + | Race | White | + + + | Ethnic Group | Not or | + + + Author + + + | Author | [facility] | + + + | Organization | [facility] | + + + | Address | Unknown | + + + | Phone | Unavailable | + + + Support + + + + + | Name | Relationship | Address | Phone | + + + + + | TRACIE SHAFFER | ECON | [place] | | | | | [address] | | + + + + + Care Team Providers + +------+ + | Care Hand Buffer Name | Role | Phone | + +------+ + | Alee Doe PA-C | PCP | | + +------+ + Reason for Visit + + + | Reason | Comments | + + + | Lab Results | | + + + Encounter Details +--------+ + + + + | Date | Type | Department | Care Team | Description | +--------+ + + + + | 10/19/ | Telephone | [facility] | Alee Doe, | Lab Results | | 2017 | | Medicine [address] | [address] | | | | | St [place], | [place], [place] | | | | | [place] [address] | [address] | | | | | [phone] | | | | | | | [...] as of this encounter Plan of Treatment + +--------+ + + | Name | Priori | Associated Diagnoses | Order Schedule | | | ty | | | + +--------+ + + | UA, DIPSTICK W/ REFLEX | Routin | Elevated bilirubin | Expected: 10/20/2017 | | | e | Elevated LFTs | | | | | Hematuria, | | | | | unspecified type | | + +--------+ + + | LIVER SET (AST,ALT,BILI | Routin | Elevated bilirubin | Expected: | | TOTAL,BILI DIRECT,ALK | e | Elevated LFTs | 10/20/2017, Expires: | | PHOS,ALB,PROT TOTAL) | | Hematuria, | 11/20/2018 | | | | unspecified type | | + +--------+ + + as of this encounter Visit Diagnoses + + | Diagnosis | + + | Elevated bilirubin - Primary | + + | Disorders of bilirubin excretion | + + | Elevated LFTs | + + | Other abnormal blood chemistry | + + | Hematuria, unspecified type | + +
--- OUTSIDE RECORDS SUMMARY | ~2017-12-21 | XMS | Encounter Summary ---
Demographics + + + | Address | [address] | | | [place] [address] | + + + | Home Phone | | + + + | Preferred Language | Unknown | + + + | Marital Status | Single | + + + | Latter Day Affiliation | NRP | + + + | Race | White | + + + | Ethnic Group | Not or | + + + Author + + + | Author | [facility] | + + + | Organization | [facility] | + + + | Address | Unknown | + + + | Phone | Unavailable | + + + Support + + + + + | Name | Relationship | Address | Phone | + + + + + | TRACIE SHAFFER | ECON | [place] | | | | | [address] | | + + + + + Care Team Providers + +------+ + | Care Service And Repair Supervisor Name | Role | Phone | + +------+ + | Alee Doe PA-C | PCP | | + +------+ + Reason for Visit + + + | Reason | Comments | + + + | 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
--- OUTSIDE RECORDS SUMMARY | ~2017-12-21 | XMS | Encounter Summary ---
Demographics + + + | Address | [address] | | | [place] [address] | + + + | Home Phone [...] Author + + + | Author | [facility] | + + + | Organization | [facility] | + + + | Address | Unknown | + + + | Phone | Unavailable | + + + Support + + + + + | Name | Relationship | Address | Phone | + + + + + | TRACIE SHAFFER | ECON | [place] | | | | | [address] | | + + + + + Care Team Providers + +------+ + | Care Railroad Crane Operator Name | Role | Phone | [...] St | | | | | St [place], | [place], [place] | | | | | [place] [address] | [address] | | | | | [phone] | | | | | | | [...]
--- OUTSIDE RECORDS SUMMARY | ~2017-12-21 | XMS | Encounter Summary ---
Demographics + + + | Address | [address] | | | [place] [address] | + + + | Home Phone [...] + + + | Author | [facility] | + + + | Organization | [facility] | + + + | Address | Unknown | + + + | Phone | Unavailable | + + + Support + + + + + | Name | Relationship | Address | Phone | + + + + + | TRACIE SHAFFER | ECON | [place] | | | | | [address] | | + + + + + Care Team Providers + +------+ + | Care Supervisor Securities Vault Name | Role | Phone | + +------+ + | Alee Doe PA-C | PCP | | + +------+ + Reason for Visit + + + | Reason | Comments | + + + | search director | Financial Strain/CFL | | Call | | + + + Encounter Details +--------+ + + + + | Date | Type | Department | Care Team | Description | +--------+ + + + + | 11/23/ | Patient | [facility] | Alee Doe, | search director | | 2018 | Outreach | Medicine [address] | PA-C [address] | Call (Financial | | | | [address] [place], | [place], [place] | Strain/CFL) | | | | [place] [address] | [address] | | | | | [phone] | [phone] | | | | | | | [...]
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
--- OUTSIDE RECORDS SUMMARY | ~2017-12-21 | XMS | Encounter Summary ---
Demographics + + + | Address | [address] | | | [place] [address] | + + + | Home Phone | | + + + | Preferred Language | Unknown | + + + | Marital Status | Single | + + + | Zoroastrianism Affiliation | NRP | + + + [...] [place] | | | | | [address] | | + + + + + Care Team Providers + +------+ + | Care Hand Loom Weaver Name | Role | Phone | + [...] | | Alcohol | Alee Garcia | [place] | | | | | abuse | [address] | [facility] | | | | | Depression, | St | Living [address] | | | | unspecified | [place], | St [address] | | | | | depression | [place] | [address] | | | | | type | [address] | [place] | | | | | Procedures | Phone: | [phone] Phone: | | | | | CONSULT TO | [phone] | [phone] | | | | | BEHAVIORAL | Fax: | Fax: | | | | | HEALTH/PSYCH | [phone] | [phone] | | | | | IATRY - [...] Dx); | | | | [address] [place], | [place], [place] | Depression, | | | | [place] [address] | [address] | unspecified | | | | [phone] | [phone] | depression type; | | | | [...] recommend doing outpatient rehab and counseling through [facility]. Please call [facility] at to find out their intake hours. [...] recommend doing outpatient rehab and counseling through [facility]. Please call [facility] at to find out their intake hours. [...] visit with this patient. Alee Doe PA-C [facility] [address] [place] [address] in this encounter Plan of Treatment Not on fileas of this encounter Visit Diagnoses + + | Diagnosis | + + | Alcohol abuse - Primary | + + | Alcohol abuse, unspecified | + + | Depression, unspecified depression type | + + | Acute folliculitis | + +
--- OUTSIDE RECORDS SUMMARY | ~2017-12-21 | XMS | Encounter Summary ---
Demographics + + + | Address | [address] | | | [place] [address] | + + + | Home Phone | | + + + | Preferred Language | Unknown | + + + | Marital Status | Single | + + + | Mandaen Affiliation | NRP | + + + | Race | White | + + + | Ethnic Group | Not or | + + + Author + + + | Author | [facility] | + + + | Organization | [facility] | + + + | Address | Unknown | + + + | Phone | Unavailable | + + + Support + + + + + | Name | Relationship | Address | Phone | + + + + + | TRACIE SHAFFER | ECON | [place] | | | | | [address] | | + + + + + Care Team Providers + +------+ + | Care Basket Assembler Name | Role | Phone | + [...] | | | | | [address] [place], | [place] | | | | | [place] [address] | [address] | | | | | [phone] | | | | | | | [...]
--- OUTSIDE RECORDS SUMMARY | ~2017-12-21 | XMS | Encounter Summary ---
Demographics + + + | Address | [address] | | | [place] [address] | + + + | Home Phone | | + + + | Preferred Language | Unknown | + + + | Marital Status | Single | + + + | Bahai Affiliation | NRP | + + + | Race | White | + + + | Ethnic Group | Not or | + + + Author + + + | Author | [facility] | + + + | Organization | [facility] | + + + | Address | Unknown | + + + | Phone | Unavailable | + + + Support + + + + + | Name | Relationship | Address | Phone | + + + + + | TRACIE SHAFFER | ECON | [place] | | | | | [address] | | + + + + + Care Team Providers + +------+ + | Care Copra Sampler Name | Role | Phone | + +------+ + | Alee Doe PA-C | PCP | | + +------+ + Reason for Visit + + + | Reason | Comments | + + + | 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
--- OUTSIDE RECORDS SUMMARY | ~2017-12-21 | XMS | Encounter Summary ---
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
--- OUTSIDE RECORDS SUMMARY | ~2017-12-21 | XMS | Encounter Summary ---
Demographics + + + | Address | [address] | | | [place] [address] | + + + | Home Phone | | + + + | Preferred Language | Unknown | + + + | Marital Status | Single | + + + | Yazidi Affiliation | NRP | + + + | Race | White | + + + | Ethnic Group | Not or | + + + Author + + + | Author | [facility] | + + + | Organization | [facility] | + + + | Address | Unknown | + + + | Phone | Unavailable | + + + Support + + + + + | Name | Relationship | Address | Phone | + + + + + | TRACIE SHAFFER | ECON | [place] | | | | | [address] | | + + + + + Care Team Providers + +------+ + | Care Tire Maker Name | Role | Phone | + +------+ + | Alee Doe PA-C | PCP | | + +------+ + Reason for Visit + + + | Reason | Comments | + + + | 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
--- OUTSIDE RECORDS SUMMARY | ~2017-12-21 | XMS | Encounter Summary ---
Demographics + + + | Address | [address] | | | [place] [address] | + + + | Home Phone | | + + + | Preferred Language | Unknown | + + + | Marital Status | Single | + + + | Jain Affiliation | NRP | + + + [...] [place] | | | | | [address] | | + + + + + Care Team Providers + +------+ + | Care Wind Up Operator Name | Role | Phone | [...] | | | | | [address] [place], | [place], [place] | | | | | [place] [address] | [address] | | | | | [phone] | | | | | | | [...]
--- OUTSIDE RECORDS SUMMARY | ~2017-12-21 | XMS | Encounter Summary ---
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
--- OUTSIDE RECORDS SUMMARY | ~2017-12-21 | XMS | Encounter Summary ---
Demographics + + + | Address | [address] | | | [place] [address] | + + + | Home Phone | | + + + | Preferred Language | Unknown | + + + | Marital Status | Single | + + + | Yazidism Affiliation | NRP | + + + | Race | White | + + + | Ethnic Group | Not or | + + + Author + + + | Author | [facility] | + + + | Organization | [facility] | + + + | Address | Unknown | + + + | Phone | Unavailable | + + + Support + + + + + | Name | Relationship | Address | Phone | + + + + + | TRACIE SHAFFER | ECON | [place] | | | | | [address] | | + + + + + Care Team Providers + +------+ + | Care Fish House Worker Name | Role | Phone | + +------+ + | Alee Doe PA-C | PCP | | + +------+ + Reason for Visit + + + | Reason | Comments | + + + | Medication Question | SPOUT TENDER re Rxs sent to [facility] . | + + + Encounter Details +--------+ + + + + | Date | Type | Department | Care Team | Description | +--------+ + + + + | 12/15/ | Telephone | [facility] | Brigitte Sloan, | Medication Question | | 2018 | | Medicine [address] | INTERNAL MEDICINE NURSE [address] | (SPOUT TENDER re Rxs sent | | | | [address] [place], | [address] [place] | to [employer].) | | | | [place] [address] | [address] | | | | | [phone] | [phone] | | | | | | | [...]
--- OUTSIDE RECORDS SUMMARY | ~2017-12-21 | XMS | Encounter Summary ---
Demographics + + + | Address | [address] | | | [place] [address] | + + + | Home Phone | | + + + | Preferred Language | Unknown | + + + | Marital Status | Single | + + + | Worship Affiliation | NRP | + + + | Race | White | + + + | Ethnic Group | Not or | + + + Author + + + | Author | [facility] | + + + | Organization | [facility] | + + + | Address | Unknown | + + + | Phone | Unavailable | + + + Support + + + + + | Name | Relationship | Address | Phone | + + + + + | TRACIE SHAFFER | ECON | [place] | | | | | [address] | | + + + + + Care Team Providers + +------+ + | Care Cosmetic Manager Name | Role | Phone | + [...] left | | | | [address] [place], | [place], [place] | ear without | | | | [place] [address] | [address] | spontaneous rupture | | | | [phone] | [phone] | of tympanic | | | | [...] 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 I, Lisa Chamberlain, [facility], am functioning as a scribe for Alee Doe PA-C. I have reviewed and verified the above scribed note of my visit with this patient. Alee Doe PA-C [facility] [address] [place] [id number] in this encounter Plan of Treatment + [...] | + + + | Urine | [address] [facility] | | | [place] [address] | + + + URINE, MICROSCOPIC EXAM [...] | + + + | Urine | [address] [facility] | | | [place] [address] | + + + ALBUMIN URINE, RANDOM [...] | + + + | Urine | [address] [facility] | | | [place] [address] | + + + + + | [...] | + + + | Blood | [address] [facility] | | | [place] [address] | + + + COMPLETE METABOLIC SET [...] | >60 | >60 mL/min | | [place] | | | + +---------+ + | EGFR NON | >60 | >60 mL/min | | -[place] | | | + +---------+ + | [...] | + + + | Blood | [address] [facility] | | | [place] [address] | + + + + + | [...] | + + + | Blood | [address] [facility] | | | [place] [address] | + + + + + | Narrative | + + | Glycohemoglobin Recommended Diabetic Ranges per DCCT & ADA: Normal | | Range: <6% Good | | Control: <7% Additional action | | suggested: >8% Non-Diabetic | | Ranges: 4-6% Salesperson [employer]'s Glycohemoglobin Diabetic | | Ranges: Normal Range: [...]
--- OUTSIDE RECORDS SUMMARY | ~2017-12-21 | XMS | Encounter Summary ---
Demographics + + + | Address | [address] | | | [place] [address] | + + + | Home Phone | | + + + | Preferred Language | Unknown | + + + | Marital Status | Single | + + + | Tenriism Affiliation | NRP | + + + | Race | White | + + + | Ethnic Group | Not or | + + + Author + + + | Author | [facility] | + + + | Organization | [facility] | + + + | Address | Unknown | + + + | Phone | Unavailable | + + + Support + + + + + | Name | Relationship | Address | Phone | + + + + + | TRACIE SHAFFER | ECON | [place] | | | | | [address] | | + + + + + Care Team Providers + +------+ + | Care Radio/Tv Technician Name | Role | Phone | + +------+ + | Alee Doe PA-C | PCP | | + +------+ + Reason for Visit + + + | Reason | Comments | + + + | 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
--- OUTSIDE RECORDS SUMMARY | ~2017-12-21 | XMS | Encounter Summary ---
Demographics + + + | Address | [address] | | | [place] [address] | + + + | Home Phone [...] [place] | | | | | [address] | | + + + + + Care Team Providers + +------+ + | Care Teacher Of Gifted Students Name | Role | Phone | + [...] | | complication, | | | | [address] | | without long-term | | | | [phone] | | current use of | | [...] | + + + | Urine | [address] [facility] | | | [place] [address] | + + + ALBUMIN URINE, RANDOM [...] | + + + | Urine | [address] [facility] | | | [place] [address] | + + + + + | [...] | + + + | Blood | [address] [facility] | | | [place] [address] | + + + COMPLETE METABOLIC SET [...] | >60 | >60 mL/min | | [place] | | | + +---------+ + | EGFR NON | >60 | >60 mL/min | | -[place] | | | + +---------+ + | [...] | + + + | Blood | [address] [facility] | | | [place] [address] | + + + + + | [...] | + + + | Blood | [address] [facility] | | | [place] [address] | + + + + + | Narrative | + + | Glycohemoglobin Recommended Diabetic Ranges per DCCT & ADA: Normal | | Range: <6% Good | | Control: <7% Additional action | | suggested: >8% Non-Diabetic | | Ranges: 4-6% Fingerprint Classifier's Glycohemoglobin Diabetic | | Ranges: Normal Range: [...]
--- OUTSIDE RECORDS SUMMARY | ~2017-12-21 | XMS | Encounter Summary ---
Demographics + + + | Address | [address] | | | [place] [address] | + + + | Home Phone | | + + + | Preferred Language | Unknown | + + + | Marital Status | Single | + + + | Druze Affiliation | NRP | + + + | Race | White | + + + | Ethnic Group | Not or | + + + Author + + + | Author | [facility] | + + + | Organization | [facility] | + + + | Address | Unknown | + + + | Phone | Unavailable | + + + Support + + + + + | Name | Relationship | Address | Phone | + + + + + | TRACIE SHAFFER | ECON | [place] | | | | | [address] | | + + + + + Care Team Providers + +------+ + | Care Environmental Health Manager Name | Role | Phone | [...] | | | | | [address] [place], | [place], [place] | | | | | [place] [address] | [address] | | | | | [phone] | | | | | | | [...]
--- OUTSIDE RECORDS SUMMARY | 2017-12-21 15:28 | XMS | Clinical Summary ---
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 +------+ + + Social History + + + +--------+------+ | Tobacco Use | Types | Packs/Day | Years | Date | | | | | Used | | + + + +--------+------+ | Current Every Day | Cigarettes | 0.5 | 32 | | | Smoker | | | | | + + + +--------+------+ + +---+---+---+ | Smokeless Tobacco: | | | | | Never Used | | | | + +---+---+---+ + + | Tobacco Cessation: Ready to Quit: Yes; Counseling Given: Yes | | Comments: 6 cigarettes daily | + + + + +---------+ + | Alcohol Use | Drinks/We | oz/Week | Comments | | | ek | | | + + +---------+ + | Yes | 0 | 0.0 | "non-stop over last few days" | | | Standard | | | | | drinks or | | | | | | | | | | equivalen | | | | | t | | | + + +---------+ + + + + | Sex Assigned at | Date Recorded | | | | + + + | Not on file | | + + + Last Filed Vital Signs + + + + | Vital Sign | Reading | Time Taken | + + + + | Blood Pressure | 146/82 | 11/22/2017 3:00 PM PST | + + + + | Pulse | 101 | 11/22/2017 3:00 PM PST | + + + + | Temperature | 36.8 C (98.2 F) | 10/13/2017 10:34 AM PST | + + + + | Respiratory Rate | 16 | 03/22/2017 4:48 AM PDT | + + + + | Oxygen Saturation | 91% | 11/22/2017 3:00 PM PST | + + + + | Inhaled Oxygen | - | - | | Concentration | | | + + + + | Weight | 89.8 kg (198 lb) | 11/22/2017 3:00 PM PST | + + + + | Height | 170.2 cm (5' 7") | 03/18/2017 2:25 AM PDT | + + + + | Body Mass Index | 31.01 | 11/22/2017 3:00 PM PST | + + + + Plan of Treatment + + + + + | Health Maintenance | Due Date | Last Done | Comments | + + + + + | HIV SCREEN | | | | | | 7 | | | + + + + + | MONOFILAMENT FOOT | | | | | EXAM | 7 | | | + + + + + | TOBACCO CESSATION | | | | | INTERVENTION | 7 | | | + + + + + | PCV13 PNEUMOCOCCAL | | | | | VACCINE | 5 | | | + + + + + | DIABETIC EYE EXAM | | 08/25/2015 | | | | 6 | | | + + + + + | COLONOSCOPY | | | | | | 7 | | | + + + + + | ZOSTER VACCINATION | | | | | | 7 | | | + + + + + | CARE MANAGEMENT: | | 11/22/2017, 10/13/2017, | | | RISK LEVEL 3 (HIGH) | 8 | 07/12/2017, Additional history | | | | | exists | | + + + + + | HEMOGLOBIN A1C | | 10/13/2017, 03/19/2017, | | | | 8 | 10/06/2016, Additional history | | | | | exists | | + + + + + | CHOLESTEROL | | 07/14/2017, 07/21/2015, | | | SCREENING | 8 | 03/03/2015 | | + + + + + | CREATININE | | 10/13/2017, 07/14/2017, | | | | 8 | 03/22/2017, Additional history | | | | | exists | | + + + + + | URINE MICROALBUMIN | | 10/13/2017, 10/06/2016, | | | | 8 | 09/23/2015, Additional history | | | | | exists | | + + + + + | DIPHTHERIA,TETANUS,a | | 10/22/2014 | | | nd PERTUSSIS | 4 | | | | (DTaP/Tdap/Td) (2 - | | | | | Td) | | | | + + + + + | PPSV PNEUMOCOCCAL | Completed | 10/25/2013, 10/25/2013 | | | VACCINE | | | | + + + + + | INFLUENZA VACCINE | Completed | 10/13/2017, 10/06/2016, | | | (FLU SHOT) | | 08/04/2015, Additional history | | | | | exists | | + + + + + Results ALBUMIN URINE, RANDOM (10/13/2017 11:48 AM) + + + + | Component | Value | Ref Range | + + + + | MICROALBUMIN | 19.0 | mg/dL | + + + + | ALBUMIN/CREATININE | 30 | <=30 mg/gm | | RATIO, URI* | | | + + + + | CREATININE CONC | 641.4 (H) | 20.0 - 370.0 mg/dL | | URINE | | | + + + + + + + | Specimen | Performing Laboratory | + + + | Urine | [address] [facility] | | | [place] [address] | + + + + + | Narrative | + + | The ADA (Diabetes Care 1997 20:S24-27) has defined abnormalities in albumin excretion | | as follows: CATEGORY: RESULT: | | Normal <30 mg/g creatinine | | Microalbuminurea 30-300 mg/g creatinine Clinical | | albuminurea >300 mg/g creatinine The ADA recommends that a least 2 of 3 | | specimens collected within a 3-6 month period be abnormal before considering a patient | | to be within a diagnostic category. | + + CULTURE, URINE (10/13/2017 11:48 AM) + + + + | Component | Value | Ref Range | + + + + | CULTURE RESULT URINE | No Growth | | + + + + + + + | Specimen | Performing Laboratory | + + + | Urine | [address] [facility] | | | [place] [address] | + + + COMPLETE METABOLIC SET (NA,K,CL,CO2,BUN,CREAT,GLUC,CA,AST,ALT,BILI TOTAL,ALK PHOS,ALB,PROT TOTAL) (10/13/2017 11:48 AM) + +---------+ + | Component | Value | Ref Range | + +---------+ + | GLUCOSE, PLASMA | 152 (H) | 70 - 105 mg/dL | | (LAB) | | | + +---------+ + | BUN, PLASMA (LAB) | 13 | 6 - 26 mg/dL | + +---------+ + | CREATININE, PLASMA | 0.7 (L) | 0.9 - 1.3 mg/dL | + +---------+ + | SODIUM, PLASMA (LAB) | 135 (L) | 137 - 146 mmol/L | + +---------+ + | POTASSIUM, PLASMA | 4.0 | 3.4 - 5.3 mmol/L | | (LAB) | | | + +---------+ + | CHLORIDE, PLASMA | 94 (L) | 96 - 106 mmol/L | | (LAB) | | | + +---------+ + | TOTAL CO2, PLASMA | 26 | 18 - 30 mmol/L | | (LAB) | | | + +---------+ + | CALCIUM, PLASMA | 9.3 | 8.5 - 10.8 mg/dL | | (LAB) | | | + +---------+ + | BILIRUBIN TOTAL | 1.3 (H) | 0.2 - 1.2 mg/dL | + +---------+ + | TOTAL PROTEIN, | 8.3 | 5.8 - 8.5 g/dL | | PLASMA (LAB) | | | + +---------+ + | ALBUMIN, PLASMA | 4.3 | 3.5 - 5.0 g/dL | | (LAB) | | | + +---------+ + | ALK PHOS | 69 | 32 - 180 U/L | + +---------+ + | AST(SGOT) | 44 (H) | 10 - 41 U/L | + +---------+ + | ALT (SGPT) | 47 | 7 - 51 U/L | + +---------+ + | EGFR - | >60 | >60 mL/min | | NIGERIAN | | | + +---------+ + | EGFR NON | >60 | >60 mL/min | | -NIGERIAN | | | + +---------+ + | ANION GAP | 15 | 12 - 20 mmol/L | + +---------+ + | BUN/CREATININE RATIO | 19 | 6 - 20 | + +---------+ + | FASTING 8 HOURS OR | Yes | | | MORE? | | | + +---------+ + + + + | Specimen | Performing Laboratory | + + + | Blood | [address] [facility] | | | [place] [address] | + + + + + | Narrative | + + | GFR is estimated using the MDRD equation recommended by the National Kidney Disease | | Education Program. Estimated GFR Interpretive Information: <60 mL/min/1.73 sq | | m Chronic Kidney Disease <15 mL/min/1.73 sq | | m Kidney Failure Estimated GFR greater that 60 mL/min/1.73 | | sq m is of limited clinical value. The MDRD equation is not valid in the following | | situations: - Patients under 18 years of age - Severe malnutrition or obesity - | | Vegetarian diet - Rapidly changing kidney function | + + URINE, MICROSCOPIC EXAM (10/13/2017 11:48 AM) + + + + | Component | Value | Ref Range | + + + + | RED CELLS | 3-5 (A) | Neg, 0-3 | + + + + | WHITE CELLS | 0-2 | Neg, 0-2, 3-5 | + + + + | BACTERIA | Trace | Negative, Trace /hpf | + + + + | SQUAMOUS EPITHELIAL | None | None /hpf /hpf | + + + + | AMORPHOUS CRYSTALS | Many (A) | None /hpf | + + + + + + + | Specimen | Performing Laboratory | + + + | Urine | [address] [facility] | | | [place] [address] | + + + HEMOGLOBIN A1C, BLOOD (10/13/2017 11:48 AM) + +-------+ + | Component | Value | Ref Range | + +-------+ + | HEMOGLOBIN A1C | 6.9 | % | + +-------+ + | ESTIMATED AVERAGE | 151 | mg/dL | | GLUCOSE | | | + +-------+ + + + + | Specimen | Performing Laboratory | + + + | Blood | [address] [facility] | | | [place] [address] | + + + + + | Narrative | + + | Glycohemoglobin Recommended Diabetic Ranges per DCCT & ADA: Normal | | Range: <6% Good | | Control: <7% Additional action | | suggested: >8% Non-Diabetic | | Ranges: 4-6% Infusion Pharmacist's Glycohemoglobin Diabetic | | Ranges: Normal Range: 4.0-6.0% | | Good Control: 6.0-8.0% | | Poor Control: >8.0% | + + LIPASE, PLASMA (10/13/2017 11:48 AM) + +-------+ + | Component | Value | Ref Range | + +-------+ + | LIPASE (LAB) | 26 | 5 - 57 U/L | + +-------+ + + + + | Specimen | Performing Laboratory | + + + | Blood | [address] [facility] | | | [place] [address] | + + + from Last 3 Months
[2017-12-21] MEDS ORDERED: RANITIDINE HCL150 MG PO (15:29)
[2017-12-21] MEDS ORDERED: LISINOPRIL10 MG PO (15:29)
[2017-12-21] MEDS ORDERED: METOPROLOL SUC100 MG PO (15:29)
[2017-12-21] MEDS ORDERED: METFORMIN HCL500 M1 PO (15:29)
[2017-12-21] MEDS ORDERED: COMBIVENT RESPIM4 GM INH (15:30)
[2017-12-21] MEDS ORDERED: PANTOPRAZOLE SO40 MG PO (15:30)
[2017-12-21] MEDS ORDERED: ATORVASTATIN CA80 MG PO (15:30)
[2017-12-21] MEDS ORDERED: ASPIRIN EC325 MG PO (15:30)
[2017-12-21] MEDS ORDERED: VENTOLIN HFA18 GM INH (15:30)
[2017-12-21] MEDS ORDERED: GLIMEPIRIDE4 MG PO (15:30)
[2017-12-21] MEDS ORDERED: TRAZODONE HCL100 MG PO (15:31)
[2017-12-21] MEDS ORDERED: BACLOFEN10 MG PO (15:33)
[2017-12-21] MEDS ORDERED: METHYLPREDNISOLO4 M1 PO (15:33)
[2017-12-21] MEDS ORDERED: KETOROLAC TROME10 MG PO (15:33)
== END 2017-12-21 15:39 | disposition home or self-care (01) ==
LOC: ED 15:15
DX: M54.41 Lumbago with sciatica, right side (principal); M62.830 Muscle spasm of back; I25.2 Old myocardial infarction; I10 Essential (primary) hypertension; E11.9 Type 2 diabetes mellitus without complications; F17.200 Nicotine dependence, unspecified, uncomplicated; Z88.0 Allergy status to penicillin
CPT/HCPCS: 99283

== ENCOUNTER 2018-05-06 16:20 | Emergency (ER) | payer MEDICAID ==
[~2018-05-06] VITALS: Ht 167.6 cm; Wt 89.8 kg
[~2018-05-06 16:20] MED LIST: ASPIRIN EC325 MG PO; ATORVASTATIN CA80 MG PO; BACLOFEN10 MG PO; COMBIVENT RESPIM4 GM INH; GLIMEPIRIDE4 MG PO; KETOROLAC TROME10 MG PO; LISINOPRIL10 MG PO; METFORMIN HCL500 M1 PO; METHYLPREDNISOLO4 M1 PO; METOPROLOL SUC100 MG PO; PANTOPRAZOLE SO40 MG PO; RANITIDINE HCL150 MG PO; TRAZODONE HCL100 MG PO; VENTOLIN HFA18 GM INH
[2018-05-07] MEDS ORDERED: OXAZEPAM30 MG PO (08:34)
== END 2018-05-06 19:01 | disposition left against medical advice (07) ==
LOC: ED 16:20
DX: K85.20 Alcohol induced acute pancreatitis without necrosis or infection (principal); F10.229 Alcohol dependence with intoxication, unspecified; I25.2 Old myocardial infarction; I10 Essential (primary) hypertension; E11.9 Type 2 diabetes mellitus without complications; F17.200 Nicotine dependence, unspecified, uncomplicated; Z88.0 Allergy status to penicillin
CPT/HCPCS: 80053; 81001; 83690; 85025; 96374; 99284; J2405

== ENCOUNTER 2018-05-07 08:21 | Emergency (ER) | payer MEDICAID ==
[~2018-05-07] VITALS: Ht 167.6 cm; Wt 89.8 kg
[2018-05-07] MEDS ORDERED: OXAZEPAM30 MG PO (08:34)
== END 2018-05-07 08:49 | disposition home or self-care (01) ==
LOC: ED 08:21
DX: F10.239 Alcohol dependence with withdrawal, unspecified (principal); I10 Essential (primary) hypertension; E11.9 Type 2 diabetes mellitus without complications; I25.2 Old myocardial infarction; F17.200 Nicotine dependence, unspecified, uncomplicated; Z88.0 Allergy status to penicillin; Z79.899 Other long term (current) drug therapy
CPT/HCPCS: 99283